=== PATIENT | female | born 1955 ===

== ENCOUNTER → 2024-08-07 | Outpatient (CLI) | payer MEDICARE, OTHER ==
[2024-08-07 10:03] VITALS: BP 132/76; PULSE 68; RESP 16; TEMP 98
--- NOTE | 2024-08-07 13:13 | P.HPOB ---
History of Present Illness H&P Date: 08/07/24 Chief Complaint: Patient is here for her routine gynecologic exam This is a 68-year-old G3, P3 with an LMP of 2006. She is here to establish with this office. It has been about 1 year since her last pelvic exam. She states she had a Pap smear done last year in [place] and states it was normal. She states she has not had any history of cervical neoplasia and she states she was adequately screened throughout her life. She is complaining of vaginal irritation and states it feels "raw". About 1 month ago she was treated for UTI with Cipro. She developed yeast infection symptoms and was treated with fluconazole. She states she still feels like the vagina is irritated. She denies vaginal discharge or odor. She denies pruritus. Review of Systems The patient's weight has been stable over the last year. She denies respiratory, cardiac, or G.I. problems. Past Medical History Past Medical History: Cancer, Hyperlipidemia Additional Past Medical History / Comment(s): BREAST CANCER 2006(BL mastectomy and chemo), OSTEOPENIA. 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 History of Any Multi-Drug Resistant Organisms: None Reported Past Surgical History: Breast Surgery Additional Past Surgical History / Comment(s): BILATERAL MASTECTOMY WITH RECONSTRUCTION(implants) 2006. Colonoscopy 2023. Past Anesthesia/Blood Transfusion Reactions: No Reported Reaction Past Psychological History: No Psychological Hx Reported Smoking Status: Never smoker Past Alcohol Use History: Occasional (1 drink per week.) Past Drug Use History: None Reported Additional History: She has been since 1979. - Past Family History Mother Family Medical History: Hypertension Additional Family Medical History / Comment(s): . Father Family Medical History: CVA/TIA Additional Family Medical History / Comment(s): Heart valve problem. . Sister(s) Family Medical History: Cancer Additional Family Medical History / Comment(s): 2 sisters had breast cancer. Medications and Allergies Home Medications Medication Instructions Recorded Confirmed Type Alendronate Sodium [Fosamax] 5 mg PO DAILY 08/07/24 08/07/24 History Calcium Carbonate [Calcium] 1,200 mg PO DAILY 08/07/24 08/07/24 History Cholecalciferol (Vitamin D3) 125 mcg PO DAILY 08/07/24 08/07/24 History [Vitamin D3 (125 MCG = 5,000 IU)] Rosuvastatin Calcium [Crestor] 5 mg PO DAILY 08/07/24 08/07/24 History traZODone HCL [Desyrel] 50 mg PO DAILY 08/07/24 08/07/24 History Allergies Allergy/AdvReac Type Severity Reaction Status Date / Time No Known Allergies Allergy Unverified 08/07/24 09:58 Exam Vital Signs Temp Pulse Resp BP Pulse Ox 08/07/24 10:00 98 F 68 16 132/76 99 Intake and Output 08/06/24 08/07/24 08/07/24 22:59 06:59 14:59 Other: Weight 57.606 kg Height 5 feet 1 inch, weight 127 pounds, BMI 24.0 This is a well-developed well-nourished white female who is alert and oriented times 3 in no acute distress. HEENT: Within normal limits. NECK: Supple without mass or thyromegaly. CHEST AND LUNGS: Clear to auscultation. HEART: Regular rate and rhythm. BREASTS: Are without mass or discharge. Breasts are consistent with bilateral mastectomies status post reconstruction with implants. There is discoloration in the lower half of the right breast. The patient states this was from a burn from a heating pad shortly after her reconstruction. This she did have a revision with the skin and she has had this discoloration since then. AXILLARY EXAM: Negative for adenopathy. BACK: Negative for CVA tenderness. ABDOMEN: Soft, nontender, without palpable masses. PELVIC EXAM: Normal external genitalia mild to moderate atrophy. There is a benign appearing left labia majora inclusion cyst measuring approximately 6 x 6 mm. This is nontender and noninflamed. Cervix and vagina appear normal mild to moderate atrophy. There is small amount of whitish creamy discharge in the back of the vagina without odor. There is no evidence of prolapse. The uterus is midposition, nongravid size and nontender. The uterus is somewhat irregular and firm possibly consistent with small uterine fibroids. With bimanual examination, there is a palpable small mass on the right side measuring approximately 2 x 2 cm. This is mobile and nontender. RECTAL EXAM: Rectovaginal exam is negative for mass or tenderness and is negative for occult blood. EXTREMITIES: Nontender. IMPRESSION: 1. 76-year-old menopausal female with firm slightly irregular uterus. Differential diagnosis will include uterine fibroids mild uterine irregularity without fibroids. 2. Palpable right adnexal mass measuring 2 x 2 cm. Differential diagnosis will include palpable stool palpable ovary in a postmenopausal female. 3. Subjective feeling of vaginal irritation feels "raw" after being treated for a yeast infection about 3 to 4 weeks ago. Small vaginal discharge noted which may or may not be sign of vaginitis. 4. History of breast cancer status post bilateral mastectomy and status post chemotherapy in the past. 5. History of osteopenia taking Fosamax through her PCP. She started the Fosamax in approximately May 2024. 6. Benign appearing left labial inclusion cyst that the patient has noticed and has not changed significantly over time per the patient. 7. History of breast cancer in 2006 status post bilateral mastectomies with chemotherapy treatment. No evidence of recurrence on exam today. PLAN: 1. Pap smear was deferred since the patient states she had a normal Pap smear last year through her doctor in [place]. She states her insurance would not cover a Pap smear done at this time. She will see if she can get the records from her previous Pap smear. We will continue cervical screening until we can document 3 negative Pap smears in an year. At which time we will consider discontinuing Pap smears. 2. Affirm vaginitis panel was obtained from the vagina. 3. Mammograms have been discontinued. 4. Pelvic ultrasound was recommended because of the findings of the uterine irregularity and small right adnexal mass. The order slip was given to the patient for this. 5. We have discussed her vaginitis symptoms. If the affirm vaginitis panel does not show signs of an infection, we have talked about using something to help with possible atrophic vaginitis. She states she has used Intrarosa vaginal suppositories in the past. I recommended avoiding vaginal estrogen and the Intrarosa vaginal suppositories as well at this time because of her history of breast cancer. If the symptoms are severe enough and felt to be secondary to atrophy, we can consider getting input from her oncologist regarding using small amounts of vaginal estrogen to alleviate symptoms. She understands there is a theoretical risk because of her history of breast cancer. She can use a vaginal moisturizer such as Replens vaginal moisturizer as directed. 6. Osteoporosis prevention was discussed. I have stressed the importance of adequate calcium, vitamin D and regular exercise. Recommended amounts of calcium and vitamin D were also discussed. She had a bone density test earlier this year and it was done at [facility]. She will try to get a copy of this for me. She will continue treatment with Fosamax as prescribed by her PCP. 7. She was advised to return in one year for her annual well woman exam and as needed.
--- NOTE | 2024-08-09 09:00 | P.PN ---
Progress Note - Text Progress Note Date: 08/09/24 Affirm vaginitis panel done on 08/07/24 was positive for Luanne and Gardnerella. It was negative for Trichomonas. The pateient was notified by phone on 08/09/24. Impression: Luanne vaginites with bacterial vaginosis. Plan: metronidazole 550mg PO BID x7d, followed by Diflucan 150mg PO q 48x 2do ses. Call if problems, or if symptoms have not improved. The prescriptions were sent electronically to [facility] in [place]. She had her pelvic US today with results pending.
== END ==
LOC: WWCWWP 09:40
PROVIDERS: ATTEND Obstetrics & Gynecology

== ENCOUNTER → 2024-08-09 | Outpatient (CLI) | payer MEDICARE, OTHER ==
--- NOTE | 2024-08-09 12:34 | US ---
EXAMINATION TYPE: US pelvis complete transvag DATE OF EXAM: 08/09/2024 COMPARISON: NONE CLINICAL INDICATION: Female, 68 years old with history of R68.89 OTHER GENERAL SYMPTOMS AND SIGNS R19 .09; Doctor felt lump on right side TECHNIQUE: . Transabdominal grayscale, and color Doppler sonographic images of the pelvis were acqui red. Transvaginal sonographic images were medically necessary to better assess the following anatomy : Uterus, ovaries, and adnexa FINDINGS: Date of LMP: 17 years ago EXAM MEASUREMENTS: Uterus: 7.0 x 3.8 x 4.4 cm Endometrial Stripe: 0.25 cm Right Ovary: 1.6 x 1.2 x 1.4 cm Left Ovary: 1.5 x 1.3 x 1.7 cm 1. Uterus: Anteverted Heterogenous; calcifications seen 2. Endometrium: ? Fluid within 3. Right Ovary: WNL 4. Left Ovary: WNL 5. Bilateral Adnexa: ? Increased blood flow to vascular structures in bilateral adnexas 6. Posterior cul-de-sac: WNL Anteverted uterus with diffuse heterogenous appearance. Endometrium is normal thickness with some sim ple-appearing fluid identified. Both ovaries appear within normal limits. Increased blood flow to the bilateral adnexa. No free fluid. IMPRESSION: 1. Heterogeneous uterus without focal lesion identified. Can be seen with adenomyomatosis versus smal l fibroid changes. 2. Normal endometrial thickness of simple appearing fluid within the endometrial canal. 3. No definitive right adnexal mass. If there is continued clinical concern, consider further evaluat ion with CT abdomen and pelvis. [facility], , 08/09/2024 12:32 PM
--- NOTE | 2024-08-13 10:20 | P.PN ---
Progress Note - Text Progress Note Date: 08/13/24 OUTPATIENT FOLLOW-UP NOTE TEST(S)/RESULTS: Pelvic ultrasound done on 08/09/2024 showed ovaries that appeared normal. It also showed a heterogeneous uterus possibly consistent with uterine fibroids or adenomyosis. There was simple fluid within the endometrial cavity with normal endometrial thickness. METHOD OF NOTIFICATION: The patient was notified by phone of these results on 08/13/2024. PATIENT COMMENTS: The patient denies any postmenopausal bleeding. 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 DIAGNOSIS: Ultrasound showing normal ovaries and simple endometrial fluid with normal endometrial thickness. DISCUSSION: We have discussed the findings in more detail. The heterogeneous uterus should not be a problem. We have discussed what uterine fibroids are as well as what adenomyosis is. Plan repeating the pelvic ultrasound in 1 year because of the simple endometrial fluid. If it persists, we will continue yearly pelvic ultrasounds. PLAN: As above. She was advised to return in one year for her annual well woman exam.
== END | disposition home or self-care (01) ==
LOC: RADUSWWP 08:20
PROVIDERS: ATTEND Obstetrics & Gynecology
CPT/HCPCS: 76830; 76856

== ENCOUNTER → 2024-08-28 | Outpatient (CLI) | payer MEDICARE, OTHER ==
[2024-08-28 12:08] VITALS: BP 134/77; PULSE 71; RESP 16; TEMP 98.1
--- NOTE | 2024-08-28 12:46 | P.PN ---
Progress Note - Text Progress Note Date: 08/28/24 Chief Complaint: Vaginal irritation which was greatest about 2 weeks ago. HPI: This is a 68-year-old with an LMP of 2006. Patient was here on 08/07/2024. She had been on an antibiotic for a UTI and developed vaginitis symptoms. Affirm vaginitis testing was positive for Luanne and Gardnerella. She was treated with metronidazole for the bacterial vaginosis and with Diflucan for the Luanne vaginitis. These treatments were started around 08/13/2024. After completion of the treatments, she states he noticed some vaginal irritation which she describes as scratchy and a slight burning in the vagina. She denies any significant discharge at this time. He is wondering if vaginal e strogen would be helpful with this irritation. She previously used Vagifem for short amount of time. She does have a history of breast cancer and is status post bilateral mastectomies in 2006. She states her oncologist, Dr. Blakely, has told her it would be okay to use some vaginal estrogen even though she has a history of breast cancer. ROS: She denies respiratory, cardiac, or GI problems. PE: Blood pressure: 134/77, Height: 5 feet 2 inches, Weight: 127 pounds, Temperature: 98.1, Pulse: 71. Pulse oximeter 97%. This is a well developed, well nourished, white female who is alert and oriente dx3, in no acute distress. External genitalia reveals mild to moderate atrophy without lesions. There is no significant erythema. Vagina: The cervix and vagina reveal mild to moderate atrophy without lesions. There is a minimal amount of whitish thick discharge without odor. This is more cream like and not chunky. Impression: 1. 68-year-old menopausal female status post treatment for bacterial vaginosis and Luanne vaginitis with some persistence of vaginal irritation with minimal findings on exam today. Differential diagnosis will include physiologic discharge, atrophic vaginitis, Luanne vaginitis, and bacterial vaginosis. 2. History of breast cancer in 2006 status post bilateral mastectomies who has been in remission for 17 years. Plan: 1. Affirm vaginitis panel was obtained from the vagina. If this is negative, we will consider Vagifem use. We have discussed theoretical risks including stimulation to dormant breast cancer cells in her body. Being that she is 17 years out from her breast cancer and is status post bilateral mastectomies, I think the risk would be minimal and she states Dr. Ramachandran has given her the okay for this. If the affirm vaginitis panel shows something that needs to be treated, we will treat that first and then determine if this would be that beneficial. Time spent with the patient: 20 minutes
--- NOTE | 2024-08-30 09:17 | P.PN ---
Progress Note - Text Progress Note Date: 08/30/24 OUTPATIENT FOLLOW-UP NOTE TEST(S)/RESULTS: Test results from 08/28/2024 include affirm vaginitis panel positive Luanne, positive Gardnerella, and negative trichomonas. METHOD OF NOTIFICATION: The patient was notified by phone on 08/30/2024. PATIENT COMMENTS: DIAGNOSIS: Luanne vaginitis and bacterial vaginosis with minimal symptoms. This is post treatment for both of these about 2 to 3 weeks ago. DISCUSSION: Because the symptoms are minimal, I will treat her for the Luanne vaginitis again. I am going to not retreat for bacterial vaginosis if needed this can correct itself with the vaginal clark is corrected. We will start the Vagifem 10 mcg into the vagina 2 times weekly as we had discussed at her visit. She will also be given a prescription for Diflucan 150 mg p.o. every 48 hours x 2 doses. I think that treating some of the atrophic tissue may encourage a more normal vaginal calrk with the vaginitis persistence. Electronic prescriptions will be sent to [facility] pharmacy. PLAN: As above.
== END ==
LOC: WWCWWP 11:54
PROVIDERS: ATTEND Obstetrics & Gynecology
DX: B37.31 Acute candidiasis of vulva and vagina (principal); Z85.3 Personal history of malignant neoplasm of breast; Z90.13 Acquired absence of bilateral breasts and nipples; Z87.440 Personal history of urinary (tract) infections; Z78.0 Asymptomatic menopausal state

== ENCOUNTER → 2024-09-11 | Outpatient (CLI) | payer MEDICARE, OTHER ==
[2024-09-11 12:31] VITALS: BP 132/85; PULSE 68; RESP 16; TEMP 98.4
--- NOTE | 2024-09-11 13:50 | P.PN ---
Progress Note - Text Progress Note Date: 09/11/24 Chief Complaint: Vulvar irritation persisting after treatment for a yeast infection. HPI: This is a 69-year-old G3, P3 with an LMP of 2006. Patient initially presented on 08/07/2024 with vaginitis and vulvar symptoms. Affirm vaginitis panel was positive for Gardnerella and Luanne. She was treated with metronidazole followed by Diflucan. On 08/28/2024, she was still having slight vulvar irritation. Affirm vaginitis panel was repeated and again was positive for Gardnerella and Luanne. She was treated with Diflucan and also given a prescription for Vagifem to help with genital atrophy. She states the vulvar symptoms are still fairly minimal, but not completely resolved. She states the Vagifem seems to help and the vulvar symptoms seem to be improved for 1 day after the tablet is inserted into the vagina. She has been taking the Vagifem in the vagina every other day during the past week. She denies any vaginal discharge or vaginal odor. Even though the symptoms are not very severe, the patient would like to be seen prior to traveling. She will be leaving tomorrow. ROS: Unremarkable. PE: Blood pressure: 132/85, Height: 5 feet 2 inches, Weight: 127 pounds, Temperature: 98.4, Pulse: 68. pulse oximeter 98%. This is a well developed, well nourished, white female who is alert and orientedx3, in no acute distress. External genitalia reveals mild to moderate atrophy without lesions. There is no significant erythema noted. Cervix and vagina reveals mild to moderate atrophy with a minimal amount of slightly baptiste mucus. There is no odor noted. Impression: 1. 69-year-old menopausal female with recurrent Luanne vaginitis which is treated twice with Diflucan. Her vulvar irritation has not completely resolved. Differential diagnosis will include incomplete treatment of Luanne vaginitis, persistent vulvar symptoms following adequate treatment, bacterial vaginosis, and atrophic vulvitis. Plan: 1. Affirm vaginitis panel was taken from the vagina. 2. If the affirm vaginitis panel is negative, she will continue Vagifem as directed. Symptoms persist, we can consider changing to an estrogen vaginal cream which she can directly applied to the labia. 3. If the affirm vaginitis panel is positive we can treat accordingly. Time spent with the patient: 20 minutes
== END ==
LOC: WWCWWP 12:01
PROVIDERS: ATTEND Obstetrics & Gynecology
DX: B37.32 Chronic candidiasis of vulva and vagina (principal); L29.2 Pruritus vulvae; N76.2 Acute vulvitis; N76.0 Acute vaginitis; Z78.0 Asymptomatic menopausal state

== ENCOUNTER → 2024-09-25 | Outpatient (CLI) | payer MEDICARE, OTHER ==
[2024-09-25 10:25] VITALS: BP 159/74; PULSE 65; RESP 16; TEMP 98.1
--- NOTE | 2024-09-25 11:00 | P.PN ---
Progress Note - Text Progress Note Date: 09/25/24 Chief Complaint: Slight vaginal irritation that started again today. HPI: This is a 69-year-old G3, P3 with an LMP of 2007. The patient has had recurrence of vaginal irritation that started after taking a course of ciprofloxacin for a UTI. Affirm vaginitis panel was initially done on 08/07/20 which was positive for Luanne and Gardnerella. She was treated with metronidazole and followed by Diflucan. She had improvement of her symptoms, but she had recurrence of some vaginal irritation. In early August, the affirm panel was again done because of some vaginal irritation and again was positive for Luanne. She again was treated with Diflucan. Most recently she had another affirm vaginitis panel on 09/11/2024 because she still had very minimal vaginal irritation without discharge. The affirm vaginitis panel again was positive for Luanne. This time she was treated with Terazol 7 cream for 7 days. She states she noticed significant improvement. Her last dose was on 09/21/2024. She states she felt fine until this morning when she had very slight vaginal irritation again. She denies discharge or vaginal odor. She is preparing to leave for [place] for several months. She is concerned about getting there and continuing to have vaginal irritation and possibly worsening symptoms. ROS: Unremarkable. She denies urinary urgency or frequency as well as dysuria. PE: Blood pressure: 159/74, Height: 5 feet 2 inches, Weight: 126 pounds, Temperature: 98.1, Pulse: 65. Pulse oximeter 100%. This is a well developed, well nourished, right female who is alert and orientedx3, in no acute distress. External genitalia reveals mild atrophy without lesions and there is no significant erythema. Cervix and vagina appear normal with mild atrophy. There is no unusual discharge or odor. Impression: 1. 69-year-old menopausal female with recurrent vulvovaginal candidiasis. 2. Slight vaginal irritation without discharge or odor. Differential diagnosis will include persistence of mild Luanne vaginitis, atrophic vaginitis, and post Luanne vaginal paresthesia. Plan: 1. The affirm vaginitis panel was again taken from the vagina. 2. If the affirm vaginitis panel is negative, we will plan on using Terazol 7 cream prophylactically. She will use half an applicator into the vagina weekly. If the affirm vaginitis panel is positive for Luanne, we will use a full course of Terazol 7 cream followed by the prophylactic dose as above. The electronic prescription for Terazol 7 cream will be sent to [facility] in [place]. 3. She will continue to use the Vagifem as directed which should help with atrophic vaginitis. 4. We have discussed other ways of possibly increasing the good bacteria within the vagina including eating yogurt and possibly starting probiotics. She is to avoid douching, sitting in chlorinated water, getting soap into the vagina and using other feminine hygiene products. 5. She will return for her annual well woman examination in July 2025, or as needed. 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 Time spent with the patient: 20 minutes
== END ==
LOC: WWCWWP 10:04
PROVIDERS: ATTEND Obstetrics & Gynecology
DX: B37.32 Chronic candidiasis of vulva and vagina (principal); Z78.0 Asymptomatic menopausal state

== ENCOUNTER → 2025-04-10 | Outpatient (CLI) | payer MEDICARE, OTHER ==
--- NOTE | 2025-04-10 13:11 | US ---
EXAMINATION TYPE: US carotid duplex BILAT DATE OF EXAM: 04/10/2025 COMPARISON: NONE CLINICAL INDICATION: Female, 69 years old with history of I65.23 CAROT STENOSIS, KADEN; Additional History: .... TECHNIQUE: Grayscale, color Doppler and spectral Doppler evaluation of the bilateral carotid systems and vertebral arteries. Indirect Doppler criteria was utilized. FINDINGS: EXAM MEASUREMENTS: RIGHT: Peak Systolic Velocity (PSV) cm/sec ----- Right CCA: 83.8 ----- Right ICA: 99.2 ----- Right ECA: 73.1 ICA/CCA ratio: 1.18 RIGHT: End Diastole cm/sec ----- Right CCA: 20.8 ----- Right ICA: 32.7 ----- Right ECA: 14.3 LEFT: Peak Systolic Velocity (PSV) cm/sec ----- Left CCA: 70.8 ----- Left ICA: 84.3 ----- Left ECA: 52.0 ICA/CCA ratio: 1.19 LEFT: End Diastole cm/sec ----- Left CCA: 20.8 ----- Left ICA: 31.5 ----- Left ECA: 7.8 VERTEBRALS (direction of flow): Right Vertebral: Antegrade Left Vertebral: Antegrade Rhythm: Normal INFORMATION SYSTEMS TECHNICIAN NOTES: No elevated velocities Color Doppler imaging shows patency with blood flow throughout the carotid artery. Spectral waveforms are within normal limits. IMPRESSION: Right: No hemodynamically significant stenosis. Left: No hemodynamically significant stenosis. Criteria for Assigning % of Stenosis / Diameter reduction (Estimation based on the indirect measurements of the internal carotid artery velocities (ICA PSV). 1. Normal (no stenosis)=ICA PSV < 180 cm/s: ratio < 2.0: ICA EDV<40 cm/s. 2. Less than 50% stenosis=ICA PSV < 180 cm/s: ratio < 2.0: ICA EDV<40 cm/s. 3. 50 to 69% stenosis=ICA PSV of 180 to 230 cm/s: ration 2.0 ? 4.0: ICA EDV 40-100 cm/s. PSV 125-180 cm/sec and ICA/CCA PSV Ratio ? 2.0 is also consistent with 50-69% stenosis 4. Greater than 70% stenosis to near occlusion= ICA PSV > 230 cm/s: ratio > 4.0: ICA EDV > 100 cm/s. 5. Near occlusion= ICA PSV velocities may be low or undetectable: variable ratio and ICA EDV. 6. Total occlusion=unable to detect flow. [facility], , 04/10/2025 1:08 PM
== END | disposition home or self-care (01) ==
LOC: RADUSWWP 12:27
PROVIDERS: ATTEND Internal Medicine
DX: I65.23 Occlusion and stenosis of bilateral carotid arteries (principal)
CPT/HCPCS: 93880

== ENCOUNTER → 2025-04-10 | Outpatient (CLI) | payer MEDICARE, OTHER ==
--- NOTE | 2025-04-10 19:12 | CA ---
Transthoracic Echo Report Name: Melissa Bee Age: 69 Gender: F : 1955 Exam Date: 04/10/2025 13:02 Exam Location: [facility] Ht (in): 62 Wt (lb): 125 Ordering Physician: Jacky Prince MD Attending/Referring Phys: Jacky Prince MD [employer] Rissa Chanel, RDCS Procedure CPT: Indications: I34.0 mitral valve regurgitation Cardiac Hx: Technical Quality: Fair, Breast Implants Contrast 1: Total Dose (mL): Contrast 2: Total Dose (mL): MEASUREMENTS (Male / Female) Normal Values 2D ECHO LV Diastolic Diameter PLAX 4.4 cm 4.2 - 5.9 / 3.9 - 5.3 cm LV Systolic Diameter PLAX 3.1 cm IVS Diastolic Thickness 1.1 cm 0.6 - 1.0 / 0.6 - 0.9 cm LVPW Diastolic Thickness 1.1 cm 0.6 - 1.0 / 0.6 - 0.9 cm LV Relative Wall Thickness 0.5 RV Internal Dim ED PLAX 2.9 cm LVOT Diameter 1.9 cm LA Systolic Diameter LX 4.3 cm 3.0 - 4.0 / 2.7 - 3.8 cm LV Diastolic Volume MOD BP 69.0 cm??? 67 - 155 / 56 - 104 cm??? LV Systolic Volume MOD BP 29.7 cm??? - 58 / 19 - 49 cm??? LV Ejection Fraction MOD BP 56.9 % >= 55 % LV Cardiac Index MOD BP 1317.5 cm???/min???m??? LV Diastolic Volume MOD 4C 69.4 cm??? LV Systolic Volume MOD 4C 24.8 cm??? LV Ejection Fraction MOD 4C 64.3 % LV Cardiac Index MOD 4C 1493.8 cm???/min???m??? LV Diastolic Length 4C 7.1 cm LV Systolic Length 4C 6.1 cm LV Diastolic Volume MOD 2C 65.4 cm??? LV Systolic Volume MOD 2C 32.6 cm??? LV Ejection Fraction MOD 2C 50.2 % LV Cardiac Index MOD 2C 1098.9 cm???/min???m??? LV Diastolic Length 2C 6.7 cm LV Systolic Length 2C 5.6 cm LA Volume 49.5 cm??? 18 - 58 / 22 - 52 cm??? LA Volume Index 31.3 cm???/m??? 16 - 28 cm???/m??? M-MODE Aortic Root Diameter MM 2.5 cm LA Systolic Diameter MM 2.9 cm LA Ao Ratio MM 1.1 AV Cusp Separation MM 1.5 cm DOPPLER AI Peak Velocity 474.6 cm/s AI Peak Gradient 90.1 mmHg AI Pressure Half Time 848.9 ms MV Area PHT 1.6 cm??? Mitral E Point Velocity 53.1 cm/s Mitral A Point Velocity 69.6 cm/s Mitral E to A Ratio 0.8 MV Deceleration Time 472.9 ms TR Peak Velocity 236.8 cm/s TR Peak Gradient 22.4 mmHg FINDINGS Left Ventricle Left ventricular ejection fraction is estimated at 55-60%. Normal left ventricular systolic function with no obvious regional wall motion abnormalities. Left ventricular cavity size normal. Right Ventricle Normal right ventricular size and function. Right ventricular systolic pressure within normal limits. Right Atrium Mild right atrial dilatation. Left Atrium Moderate left atrial dilatation. Interatrial septum is aneurysmal.patent foramen ovale. Mitral Valve Mitral valve thickened. [id number] mitral regurgitation. No mitral stenosis. Aortic Valve Trileaflet aortic valve. No aortic stenosis. Mild aortic regurgitation. Tricuspid Valve Structurally normal tricuspid valve. Mild tricuspid regurgitation. No tricuspid stenosis. Pulmonic Valve Structurally normal pulmonic valve. Trace pulmonic regurgitation. No pulmonic stenosis. Pericardium No pericardial or pleural effusion. Aorta Normal size aortic root and proximal ascending aorta. CONCLUSIONS 1. Normal left ventricular size and systolic function 2. Mild to moderate mitral regurgitation with thickened mitral valve leaflets 3. Mild tricuspid regurgitation with no evidence of pulmonary hypertension 4. Mild aortic regurgitation 5. Interatrial septal aneurysmal formation with patent foramen ovale Previewed by: Dr. Willow Montes MD (Electronically Signed) Final Date: 10 April 2025 19:11
== END | disposition home or self-care (01) ==
LOC: RADECHMAIN 12:55
PROVIDERS: ATTEND Internal Medicine
DX: I08.3 Combined rheumatic disorders of mitral, aortic and tricuspid valves (principal); Z98.82 Breast implant status; Q21.12 Patent foramen ovale
CPT/HCPCS: 93306